=== PATIENT | male | born 2005 | race Caucasian/White ===

== ENCOUNTER 2024-11-25 11:53 | Day surgery (SDC) | payer OTHER, SELFPAY ==
--- NOTE | 2024-11-25 12:17 | W.PM.OPSUD ---
Surgery/Procedure H&P Update DATE OF PROCEDURE: November 25, 2024 DATE H&P PERFORMED: 10/28/24 H&P UPDATE INFORMATION: I have reviewed H&P completed within last 30 days, I have examined patient prior to procedure, No changes to prior documentation, Changes to prior documentation as noted here and Risks and benefits of the procedure reviewed PLANNED PROCEDURE: Operation Date: 11/25/24 13:30 Proposed Procedures p EGD [id number] G0105 R10.9 R19.8(Not Applicable) - Marvin Oquendo MD s Colonoscopy(Not Applicable) - Marvin Oquendo MD
[2024-11-25] MEDS: sodium chloride 0.9% 1,000 ML 15 ML IV (12:24)
[2024-11-25 12:25] VITALS: BP 118/78; PULSE 63; RESP 18; TEMP 36.3; O2SAT 98
--- NOTE | 2024-11-25 12:27 | ANES.PREANE2 ---
Pre-Anesthetic Assessment Height/Weight: Height 1.68 m Preop Diagnosis: Abd pain, bloating Operation Date: 11/25/24 13:30 Proposed Procedures p EGD [id number] G0105 R10.9 R19.8(Not Applicable) - Marvin Oquendo MD s Colonoscopy(Not Applicable) - Marvin Oquendo MD Was Beta Noemi taken within 24 hours: N/A Was Clonidine taken within 24 hours: N/A Social Tobacco Vaps Exam alert, oriented x 3, clear to auscultation bilaterally and regular rate & rhythm Airway Submandibular: within normal limits Cervical ROM: within normal limits Mallampati: Class II Dentition: full History/ROS No significant history except as noted and No significant complaints Pulmonary None reported CV/HEM None reported None reported Hepatic None reported GI None reported Metabolic None reported Musc/skel None reported Neuropsych Migraine Anesthetic Plan ASA status: 2 Anesthesia: Anesthesia Evaluation and MAC Risk of > 500 ml blood loss (7ml/kg in children): No Medications/Allergies Home Medications ?Medication ?Instructions ?Recorded ?Confirmed ?Last Taken ?Type ondansetron 4 mg disintegrating 4 mg PO Q8H #10 tabs 11/06/22 11/23/24 Unknown Rx tablet bupropion HCl 300 mg 24 hr tablet, 300 mg PO QAM 10/28/24 11/23/24 11/23/24 History extended release ondansetron 8 mg disintegrating 8 mg PO Q8H PRN nausea and 10/28/24 11/23/24 Unknown Rx tablet vomiting #3 tabs tirzepatide 2.5 mg/0.5 mL 2.5 mg SUBCUT .once a week 10/28/24 11/23/24 1 Month Ago History subcutaneous pen injector ~10/23/24 (Mounjaro) topiramate 50 mg tablet 50 mg PO BID 10/28/24 11/23/24 11/23/24 History Allergies Allergy/AdvReac Type Severity Reaction Status Date / Time Alpha-Gal Allergy ADR-Abdominal Verified 10/28/24 13:39 (Cvimmlflp-Dmacb-4,3-Gala Pain gluten Allergy ADR-Abdominal Verified 11/23/24 10:41 Pain hazelnut Allergy ADR-Abdominal Verified 10/28/24 13:51 Pain lactose Allergy ADR-Abdominal Verified 10/28/24 13:51 Pain Milk Containing Products Allergy ADR-Abdominal Verified 10/28/24 13:51 (Dairy) Pain shrimp Allergy Unknown Verified 10/28/24 13:39 Current Medications Generic Name Dose Route Start Last Admin Trade Name Freq PRN Reason Stop Dose Admin Sodium Chloride 1,000 mls @ 15 mls/hr 11/25/24 12:13 11/25/24 12:24 Sodium Chloride 0.9% IV 11/26/24 12:12 15 mls/hr .Q24H PRN Administration COLONOSCOPY FLUIDS PFSH Anesthesia Family History (Updated 10/28/24 @ 13:[address]) Family/Other Diabetes Hypertension Social History Smoking and tobacco/nicotine status: current every day tobacco/nicotine user (vape w/nicotine)
[2024-11-25 13:00] VITALS: BP 94/56; PULSE 59; RESP 20; TEMP 36.1; O2SAT 98
[2024-11-25 13:20] VITALS: BP 107/79; PULSE 54; RESP 20; O2SAT 100
--- NOTE | 2024-11-25 13:30 | ANE.PACU2 ---
Inpatient post-anesthesia follow up: Airway intact: Yes Vital signs: Temperature 97.0 F Pulse Rate 54 Respiratory Rate 20 Blood Pressure 107/79 Pulse Oximetry 100 Oxygen Delivery Me thod Room Air Oxygen Flow Rate 2 Fraction of Inspir ed Oxygen Hydration adequate: Yes Nausea and vomiting: No Pain level: 1 Mental status: Baseline
== END 2024-11-25 13:41 | disposition home or self-care (01) ==
PROVIDERS: PCP Nurse Practitioner Family; Visit Provider Surgery
PROC: 0DJ08ZZ Inspection of Upper Intestinal Tract, Via Natural or Artificial Opening Endoscopic (ICD-10-PCS; principal; 2024-11-25 13:30)
PROC: 0DJD8ZZ Inspection of Lower Intestinal Tract, Via Natural or Artificial Opening Endoscopic (ICD-10-PCS; CPT 45378; 2024-11-25 13:30)
DX: K29.30 Chronic superficial gastritis without bleeding (principal); K52.9 Noninfective gastroenteritis and colitis, unspecified; K29.00 Acute gastritis without bleeding; K21.9 Gastro-esophageal reflux disease without esophagitis; Z79.85 Long-term (current) use of injectable non-insulin antidiabetic drugs; Z79.899 Other long term (current) drug therapy; F17.290 Nicotine dependence, other tobacco product, uncomplicated
CPT/HCPCS: 43239; 45380; 88305; J7030; J9999